=== PATIENT | male | born 1980 | race Caucasian/White ===

== ENCOUNTER 2017-10-25 21:17 | Emergency (ER) | payer BC ==
[2017-10-25 21:27] VITALS: BP 113/73; PULSE 96; RESP 20; TEMP 97.6; O2SAT 97
--- NOTE | 2017-10-25 22:07 | C.PDOC ---
History Of Present Illness 37 year old male with a Hx of hemorrhoids presents to the ER with a complaint of increasing rectal pain for the past 2 days after doing heavy lifting at work. Patient has been using ointment and suppositories prescribed by his PMD with some relief, but states he still has pain when sitting down. Patient notes he has a high fiber diet. Denies rectal bleeding, constipation, or abdominal pain. Time Seen by Provider: 10/25/17 21:45 Chief Complaint (Nursing): Back Pain History Per: Patient History/Exam Limitations: no limitations Onset/Duration Of Symptoms: Days Current Symptoms Are (Timing): Still Present Quality Of Discomfort: Unable To Describe Previous Symptoms: None Associated Symptoms: None Recent travel outside of the [place]: No Past Medical History Reviewed: Historical Data, Nursing Documentation, Vital Signs Vital Signs: Last Vital Signs Temp 97.6 F 10/25/17 21:19 Pulse 96 H 10/25/17 21:19 Resp 20 10/25/17 22:20 BP 113/73 10/25/17 21:19 Pulse Ox 97 10/26/17 03:19 Family History: States: Unknown Family Hx - Social History Hx Alcohol Use: Yes (wine) Hx Substance Use: No - Immunization History Hx Tetanus Toxoid Vaccination: No Hx Influenza Vaccination: No Hx Pneumococcal Vaccination: No Review Of Systems Gastrointestinal: Positive for: Rectal Pain. Negative for: Abdominal Pain, Constipation, Other (rectal bleeding) Physical Exam - Physical Exam Appears: Non-toxic Skin: Normal Color, Warm, Dry Head: Atraumatic, Normacephalic Eye(s): bilateral: Normal Inspection Gastrointestinal/Abdominal: Soft, No Tenderness Rectal: Hemorrhoids (Large external), No Other (Bleeding, abscess) Neurological/Psych: Oriented x3, Normal Speech ED Course And Treatment O2 Sat by Pulse Oximetry: 97 (Room air) Pulse Ox Interpretation: Normal Progress Note: Motrin administered, Patient advised to continue current medications and to used a sitz bath. Patient reports he has an appointment scheduled with general surgery, instructed to keep appointment as scheduled and to return to the ER if symptoms worsen. Reassessment Condition: Improved Disposition Counseled Patient/Family Regarding: Diagnosis - Disposition Referrals: [facility] [Outside] Disposition: HOME/ ROUTINE Disposition Time: 22:01 Condition: STABLE Additional Instructions: Please follow up with PMD Do sitz baths or warm cloths to area Motrin for pain High fiber diet Use hemorrhoidal ointment Return to ER if worse Instructions: Hemorrhoids (ED) Forms: [facility] (Pu[place]ican), Work Excuse - Clinical Impression Clinical Impression: External hemorrhoid - PA / [employer] / Resident Statement MD/DO has reviewed & agrees with the documentation as recorded. - Scribe Statement The provider has reviewed the documentation as recorded by the Scribmarty Jimenez All medical record entries made by the Mioibmarty were at my direction and personally dictated by me. I have reviewed the chart and agree that the record accurately reflects my personal performance of the history, physical exam, medical decision making, and the department course for this patient. I have also personally directed, reviewed, and agree with the discharge instructions and disposition.
== END 2017-10-25 22:18 | disposition home or self-care (01) ==
LOC: C.ER 21:17
DX: K64.4 Residual hemorrhoidal skin tags (principal)